=== PATIENT | female | born 1965 | race Caucasian/White ===

== ENCOUNTER 2016-11-06 10:58 | Emergency (ER) | payer MEDICARE ==
[2014-12-21 13:48] VITALS: BMI 29.9
[~2016-11-06 10:58] MED LIST: AMITRIPTYLINE H50 MG PO; ASPIRIN81 MG PO; COREG6.25 MG PO; CYCLOBENZAPRINE10 MG PO; DURAGESIC1 PATCH .3 TRANSDERM; FOLIC ACID1 MG PO; HYDROCODONE-APA1 TAB PO; KLONOPIN1 MG PO; METHOTREXATE2.5 MG PO; MOBIC7.5 MG PO; PLAQUENIL200 MG PO; PREDNISONE5 MG PO; PRILOSEC20 MG PO; PROZAC40 MG PO; RIFADIN300 MG PO; SEROPHENE50 MG PO; SEROQUEL XR50 MG PO; VESICARE10 MG PO; VITAMIN D2000 UNIT PO; ZESTORETIC 10/11 TAB PO; ZOCOR40 MG PO; ZOFRAN4 MG PO
[2016-11-06 11:32] LABS: BASOPHILS 0.2 % (0.0-2.0); EOSINOPHILS 2.7 % (0-7); HEMATOCRIT 40.9 % (36.0-48.0); HEMOGLOBIN 13.1 g/dL (12-16); IMMATURE GRANULOCYTES 0.5 % (0-5); LYMPHOCYTES 16.9 % (15-50); MCH 31.7 pg (26.0-34.0); MEAN PLATELET VOLUME 10.3 fL (7.4-10.4); MONOCYTES 4.1 % (2-11); NEUTROPHILS 75.6 % (40-80); RBC 4.13 10x6/uL (4.00-5.40); RDW 14.2 % (11.5-14.5); WBC 13.1 10x3/uL (4.8-10.8)
[2016-11-06 11:34] LABS: PLATELET COUNT 261 10x3/uL (130-400)
[2016-11-06 11:45] LABS: ANION GAP 14.8 mmol/L (8-16); BILIRUBIN - TOTAL 0.3 mg/dL (0.2-1.3); CALCIUM 9.6 mg/dL (8.5-10.1); CARBON DIOXIDE 27.2 mmol/L (21.0-32.0)
== END 2016-11-06 16:01 | disposition home or self-care (01) ==
LOC: D.ER 10:58
PROVIDERS: Emergency Medicine
DX: R05 Cough (principal); R06.02 Shortness of breath; R50.9 Fever, unspecified; E87.6 Hypokalemia; M06.9 Rheumatoid arthritis, unspecified; K21.9 Gastro-esophageal reflux disease without esophagitis; F41.9 Anxiety disorder, unspecified; F17.200 Nicotine dependence, unspecified, uncomplicated

== ENCOUNTER 2017-01-31 20:15 | Inpatient (IN) | payer MEDICARE ==
[~2017-01-31] VITALS: Ht 172.7 cm; Wt 95.0 kg
[2017-01-31 20:53] LABS: BASOPHILS 0.3 % (0-2); EOSINOPHILS 1.2 % (0-7); HEMATOCRIT 42.8 % (36.0-48.0); HEMOGLOBIN 13.9 g/dL (12-16); IMMATURE GRANULOCYTES 6.4 % (0-5); LYMPHOCYTES 22.6 % (15-50); MCH 30.9 pg (26.0-34.0); MCHC 32.5 g/dL (31.0-37.0); MCV 95.1 fL (80.0-100.0); MEAN PLATELET VOLUME 10.5 fL (7.4-10.4); MONOCYTES 7.3 % (2-11); NEUTROPHILS 62.2 % (40-80); PLATELET COUNT 283 10x3/uL (130-400); RDW 15.2 % (11.5-14.5); WBC 11.8 10x3/uL (4.8-10.8)
[2017-01-31 21:05] LABS: ALBUMIN 2.9 g/dL (3.4-5.0); BILIRUBIN - TOTAL 0.2 mg/dL (0.2-1.3); CALCIUM 9.6 mg/dL (8.5-10.1); CARBON DIOXIDE 20.4 mmol/L (21.0-32.0); CREATININE - SERUM 1.6 mg/dL (0.6-1.3); POTASSIUM - SERUM 3.4 mmol/L (3.5-5.1); PROTEIN - SERUM 7.3 g/dL (6.4-8.2)
[2017-01-31 21:56] LABS: APPEARANCE CLOUDY (CLEAR); BACTERIA MANY /hpf (NONE SEEN); BILIRUBIN NEGATIVE (NEGATIVE); COLOR YELLOW (YELLOW); GLUCOSE NEGATIVE (NEGATIVE); HYALINE CAST OCC /lpf (NONE SEEN); KETONE NEGATIVE (NEGATIVE); LEUKOCYTE ESTERASE 2+ (NEGATIVE); MUCUS <1+ /lpf (NONE SEEN); NITRITE POSITIVE (NEGATIVE); PROTEIN 1+ mg/dL (NEGATIVE); RED CELLS - URINE 0-5 /hpf (0-5); SPECIFIC GRAVITY 1.015 (1.005-1.020)
--- NOTE | 2017-02-01 00:14 | NUR ---
PT ARRIVES TO FLOOR VIA STRETCHER, ACCOMPANIED BY ER NURSE. ADMISSION ASSESSMENT AND HISTORY OBTAINED. MEDICATIONS RECONCILED AT THE BEDSIDE. VSS, AFEBRILE. PLACED ON TO TELEMETRY, HR 90-100'S SINUS RHYTHM. UNIT ROUTINES AND PROTOCOLS DISCUSSED WITH PT, PT VERBALIZES UNDERSTANDING. PT STATES NEEDING HER 2 MG KLONOPIN AND HYDROCODONE 10/325 MG PO NOW, STATES SHE NORMALLY WOULD HAVE TAKEN THEM @ 2200. REASSURED PT I WOULD PAGE HER ADMITTING PHYSICIAN AND REVIEW MEDICATIONS. IVF'S STARTED ORDERED TO HER LEFT FOREARM WITH ROCEPHIN IVPB GIVEN. CALL LIGHT PLACED WITHIN REACH. WILL CONT TO MONITOR.
[2017-02-01 00:37] VITALS: BP 157/96; BMI 30.2; BMI 38.1
[2017-02-01] MEDS ORDERED: XELJANZ 5 MG PO (01:16)
[2017-02-01] MEDS ORDERED: MARINOL5 MG PO (01:17)
[2017-02-01] MEDS ORDERED: ENDOCET 10-3251 TAB PO (01:18)
--- NOTE | 2017-02-01 02:43 | NUR ---
JAYJAY SANDOVAL APN FOR FURTHER ORDERS RE: PT'S PAIN CONTROL RELATED TO HER RHEUMATOID ARTHRITIS. AWAITING RETURN CALL.
[2017-02-01 03:00] LABS: BASOPHILS 0.5 % (0-2); EOSINOPHILS 1.3 % (0-7); HEMATOCRIT 38.4 % (36.0-48.0); HEMOGLOBIN 12.1 g/dL (12-16); IMMATURE GRANULOCYTES 4.7 % (0-5); MCH 30.1 pg (26.0-34.0); MCHC 31.5 g/dL (31.0-37.0); MCV 95.5 fL (80.0-100.0); MEAN PLATELET VOLUME 10.6 fL (7.4-10.4); NEUTROPHILS 66.5 % (40-80); PLATELET COUNT 232 10x3/uL (130-400); RBC 4.02 10x6/uL (4.00-5.40); RDW 15.1 % (11.5-14.5); WBC 9.8 10x3/uL (4.8-10.8)
[2017-02-01 03:19] LABS: ANION GAP 13.6 mmol/L (8-16); CALCIUM 8.7 mg/dL (8.5-10.1); CARBON DIOXIDE 24.4 mmol/L (21.0-32.0); CREATININE - SERUM 1.2 mg/dL (0.6-1.3)
[2017-02-01 04:00] VITALS: BP 178/95
--- NOTE | 2017-02-01 05:58 | NUR ---
NO RETURN PHONE CALL FROM ROXANN SANDOVAL BOATWRIGHT. EXPLAINED TO PT SHE NEEDED TO BE ASSESSED THIS AM BEFORE RESTARTING HOME NARCOTICS. PT VERBALIZED UNDERSTANDING.
--- NOTE | 2017-02-01 08:04 | NUR ---
AM ROUNDS - PT APPEARS TO BE SLEEPING ON BACK WITH EQUAL AND NON LABORED BREATHS. MONITOR SHOWS SR, HR 90. LEFT FA, NS AT 20CC/HR. WILL CONTINUE TO MONITOR.
[2017-02-01 08:07] VITALS: BP 145/87
[2017-02-01 13:39] VITALS: Ht 172.7 cm; Wt 95.0 kg
[2017-02-01 16:00] VITALS: BP 144/66
[2017-02-01 19:00] VITALS: BP 205/106
--- NOTE | 2017-02-01 19:15 | NUR ---
PT RECEIVED IN BED WITH EYES OPEN. PT COMPLAINS OF PAIN WITH PRN PAIN MEDICATION GIVEN PER MAR. NO OTHER NEEDS OR CONCERNS MADE KNOWN AT THIS TIME. CALL LIGHT IN REACH. WILL CONTINUE TO OBSERVE.
--- NOTE | 2017-02-01 21:30 | NUR ---
PT IN BED WITH EYES OPEN. RECIEVED MEDICATIONS PER MAR. CONTINUES WITH COMPLAINTS OF PAIN. NO OTHER NEEDS OR COMPLAINTS MADE KNOWN. CALL LIGHT IN REACH. WILL CONTINUE TO OBSERVE.
[2017-02-02] VITALS: BP 153/78
--- NOTE | 2017-02-02 02:34 | NUR ---
PT IN BED WITH EYES CLOSED AND CHEST RISING. NO SIGN/SYMPTOMS OF DISTRESS NOTED AT THIS TIME. CALL LIGHT IN REACH. WILL CONTINUE TO OBSERVE.
[2017-02-02 04:00] VITALS: BP 150/76
[2017-02-02 06:01] LABS: BASOPHILS 0.2 % (0-2); HEMATOCRIT 35.9 % (36.0-48.0); HEMOGLOBIN 11.4 g/dL (12-16); IMMATURE GRANULOCYTES 3.7 % (0-5); LYMPHOCYTES 22.4 % (15-50); MCH 30.5 pg (26.0-34.0); MCHC 31.8 g/dL (31.0-37.0); MEAN PLATELET VOLUME 10.2 fL (7.4-10.4); MONOCYTES 7.8 % (2-11); NEUTROPHILS 63.9 % (40-80); PLATELET COUNT 215 10x3/uL (130-400); RBC 3.74 10x6/uL (4.00-5.40); RDW 15.2 % (11.5-14.5)
[2017-02-02 06:17] LABS: ANION GAP 10.5 mmol/L (8-16); CALCIUM 8.2 mg/dL (8.5-10.1); CARBON DIOXIDE 24.9 mmol/L (21.0-32.0); CREATININE - SERUM 0.9 mg/dL (0.6-1.3); POTASSIUM - SERUM 4.4 mmol/L (3.5-5.1)
[2017-02-02 08:00] VITALS: BP 172/96
--- NOTE | 2017-02-02 09:01 | NUR ---
ATTEMPTING TO PULL PERCOCET FOR PATIENT AND DRAW CUBIE MALFUNCTIONED. ATTEMPTED TO RETRY THE FAILED POCKET AND PYSIX INSTRUCTED TO REMOVE CUBIE BUT THIS ROLL OFF DRIVER LEFT CUBIE IN PLACE OF C1. VOCATIONAL NURSING INSTRUCTOR ON UNIT AT THIS TIME AND INFORMED HIM THAT THIS ROLL OFF DRIVER MESSED UP THE PYSIX AND HE STATED HE WOULD TAKE THE CUBIE DOWNSTAIRS AND FIX IT. PERCOCET CUBIE WITH SENIOR ELECTRICAL ESTIMATOR AT THIS TIME.
--- NOTE | 2017-02-02 09:34 | NUR ---
MEDICATED FOR PAIN AT THIS TIME. NO DISTRESS.
--- NOTE | 2017-02-02 11:19 | NUR ---
SITTING UP IN BED, DAUGHTER AT BEDSIDE. PAIN AT 5/10. NO DISTRESS. CALL LIGHT WITHIN REACH. IV FLUIDS INFUSING ORDERED.
[2017-02-02 12:00] VITALS: BP 150/87
--- NOTE | 2017-02-02 14:03 | NUR ---
MEDICATED FOR PAIN AT THIS TIME. NO DISTRESS.
[2017-02-02 16:00] VITALS: BP 156/90
[2017-02-02] MEDS ORDERED: MACROBID100 MG PO (16:00)
--- NOTE | 2017-02-02 19:11 | NUR ---
1814- 20 GAUGE IV REMOVED FROM LEFT FOREARM. CATHETER TIP INTACT. NO BLEEDING FROM SITE. 2X2 GAUZE APPLIED AND SECURED WITH TAPE. TOLERATED D/C IV WELL 1849 DISCHARGE INSTRUCTIONS PROVIDED TO PATIENT AND HER DAUGHTER. PATIENT VERBALZIED ALL INSTRUCTIONS PROVIDED. 1854 PATIENT LEFT UNIT VIA WHEELCHAIR SHE IS DISCHARGED TO HOME. PATIENT LEFT UNIT WITH ALL PERSONAL BELONGINGS IN NO DISTRESS.
== END 2017-02-02 18:55 | disposition home or self-care (01) | DRG 690 ==
LOC: D.ER 20:15 → D.M2 23:08
PROVIDERS: Emergency Medicine; ADMIT Emergency Medicine
DX: N39.0 Urinary tract infection, site not specified (principal); R19.7 Diarrhea, unspecified; M06.9 Rheumatoid arthritis, unspecified; I10 Essential (primary) hypertension; F41.9 Anxiety disorder, unspecified; K21.9 Gastro-esophageal reflux disease without esophagitis; R00.0 Tachycardia, unspecified

== ENCOUNTER 2017-02-05 20:48 | Emergency (ER) | payer MEDICARE ==
[2017-02-01 13:39] VITALS: BMI 30.1
[~2017-02-05 20:48] MED LIST changes: +ENDOCET 10-3251 TAB PO; +MACROBID100 MG PO; +MARINOL5 MG PO; +XELJANZ 5 MG PO
== END 2017-02-06 00:16 | disposition home or self-care (01) ==
LOC: D.ER 20:48
DX: S81.812A Laceration without foreign body, left lower leg, initial encounter (principal); W26.9XXA Contact with unspecified sharp object(s), initial encounter; Y93.89 Activity, other specified; Y92.013 Bedroom of single-family (private) house as the place of occurrence of the external cause; K21.9 Gastro-esophageal reflux disease without esophagitis; F41.9 Anxiety disorder, unspecified; M06.9 Rheumatoid arthritis, unspecified

== ENCOUNTER 2017-02-28 12:50 | Inpatient (IN) | payer MEDICARE ==
[~2017-02-28] VITALS: Ht 172.7 cm; Wt 97.3 kg
[2017-02-28 14:31] LABS: BASOPHILS 0.3 % (0-2); EOSINOPHILS 1.3 % (0-7); HEMATOCRIT 39.9 % (36.0-48.0); HEMOGLOBIN 12.7 g/dL (12-16); IMMATURE GRANULOCYTES 0.6 % (0-5); LYMPHOCYTES 13.2 % (15-50); MCH 31.1 pg (26.0-34.0); MCHC 31.8 g/dL (31.0-37.0); MCV 97.6 fL (80.0-100.0); MEAN PLATELET VOLUME 10.8 fL (7.4-10.4); NEUTROPHILS 79.6 % (40-80); RBC 4.09 10x6/uL (4.00-5.40); RDW 15.8 % (11.5-14.5); WBC 14.9 10x3/uL (4.8-10.8)
[2017-02-28 14:32] LABS: PLATELET COUNT 308 10x3/uL (130-400)
[2017-02-28 14:48] LABS: ALBUMIN 2.9 g/dL (3.4-5.0); ANION GAP 16.7 mmol/L (8-16); BILIRUBIN - TOTAL 0.37 mg/dL (0.2-1.3); CALCIUM 10.2 mg/dL (8.5-10.1); CARBON DIOXIDE 26.3 mmol/L (21.0-32.0); CREATININE - SERUM 1.2 mg/dL (0.6-1.3); PROTEIN - SERUM 7.3 g/dL (6.4-8.2)
--- NOTE | 2017-02-28 17:45 | NUR ---
PT AOX4 RESP EVEN AND NONLABORED IV TO RIGHT AC PATENT AND INTACT PT DENIES NEEDS AT THIS TIME SRX2 BED AT LOWEST SETTING CALL LIGHT WITHIN REACH WILL CONTINUE TO MONITOR
[2017-02-28 17:47] VITALS: BP 121/91; BMI 30.4
--- NOTE | 2017-02-28 19:40 | NUR ---
ASSISTED PT FROM [facility], ASSESSMENT COMPLETED, NO ACUTE DISTRESS NOTED, SR'S UP, CL IN REACH, FAMILY IN ROOM, WILL MONITOR
[2017-02-28 20:00] VITALS: BP 168/95
[2017-02-28] MEDS ORDERED: GLUCOPHAGE500 MG PO (21:04)
--- NOTE | 2017-02-28 23:18 | NUR ---
KERLIX PLACED AROUND WOUND IN L [place] PER REQUEST TO KEEP STITCHES FROM SNAGGING ON SHEET, BERNICE WELL, DENIES NEEDS, SR'S UP, CL IN REACH
[2017-03-01] VITALS: BP 155/88
--- NOTE | 2017-03-01 01:28 | NUR ---
RESTING WITH EYES CLOSED, RESP WITH EASE, NO ACUTE DISTRESS NOTED, FALL PRECAUTIONS IN PLACE, CL IN REACH
--- NOTE | 2017-03-01 01:34 | NUR ---
MEDS GIVEN PER MAR, BERNICE WELL, SR'S UP, CL IN REACH, WILL CONTINUE TO MONITOR
[2017-03-01 04:00] VITALS: BP 137/81
--- NOTE | 2017-03-01 07:45 | NUR ---
PT AOX4 RESP EVEN AND NONLABORED PT DENIES NEEDS AT THIS TIME IV TO RIGHT AC PATENT AND INTACT SRX2 BED AT LOWEST SETTING CALL LIGHT WITHIN REACH WILL CONTINUE TO MONITOR
[2017-03-01 08:16] VITALS: BP 126/70
[2017-03-01 10:07] LABS: BASOPHILS 0.2 % (0-2); EOSINOPHILS 2.5 % (0-7); HEMATOCRIT 35.9 % (36.0-48.0); HEMOGLOBIN 11.2 g/dL (12-16); IMMATURE GRANULOCYTES 1.1 % (0-5); LYMPHOCYTES 25.6 % (15-50); MCH 30.6 pg (26.0-34.0); MCHC 31.2 g/dL (31.0-37.0); MCV 98.1 fL (80.0-100.0); MEAN PLATELET VOLUME 10.1 fL (7.4-10.4); MONOCYTES 5.6 % (2-11); RBC 3.66 10x6/uL (4.00-5.40); RDW 15.8 % (11.5-14.5)
[2017-03-01 10:11] LABS: PLATELET COUNT 209 10x3/uL (130-400); WBC 8.1 10x3/uL (4.8-10.8)
[2017-03-01 10:29] LABS: ALBUMIN 2.4 g/dL (3.4-5.0); BILIRUBIN - TOTAL 0.3 mg/dL (0.2-1.3); CALCIUM 8.9 mg/dL (8.5-10.1); CARBON DIOXIDE 27.2 mmol/L (21.0-32.0); PROTEIN - SERUM 6.1 g/dL (6.4-8.2)
[2017-03-01 10:30] LABS: POTASSIUM - SERUM 3.2 mmol/L (3.5-5.1)
[2017-03-01 10:53] VITALS: Ht 172.7 cm; Wt 97.3 kg
[2017-03-01 12:37] VITALS: BP 151/83
--- NOTE | 2017-03-01 13:53 | NUR ---
PT STATES "I CAN'T LIFT MY ARMS", PUT ME ON THE BEDSIDE COMMODE" I TOLD THE PT THAT SHE NEEDED TO USE THE BEDPAN IF SHE IS ALREADY WEAK.
[2017-03-01 16:48] VITALS: BP 140/78
--- NOTE | 2017-03-01 19:40 | NUR ---
ASSESSMENT COMPLETED, NO ACUTE DISTRESS NOTED, FALL PRECAUTIONS IN PLACE, CL IN REACH, WILL MONITOR
[2017-03-01 20:00] VITALS: BP 144/90
--- NOTE | 2017-03-01 21:41 | NUR ---
RESTING WITH EYES CLOSED, NO ACUTE DISTRESS NOTED, FALL PRECAUTIONS IN PLACE, CL IN REACH
--- NOTE | 2017-03-01 22:19 | NUR ---
PRN NORCO GIVEN PER REQUEST FOR C/O PAIN 06/02, BERNICE WELL, FALL PRECAUTIONS IN PLACE, CL IN REACH
--- NOTE | 2017-03-01 23:50 | NUR ---
RESTING WITH EYES CLOSED, NO DISTRESS NOTED, FALL PRECAUTIONS IN PLACE, CL IN REACH
[2017-03-02] VITALS: BP 140/77
[2017-03-02 04:00] VITALS: BP 148/93
[2017-03-02 06:46] LABS: BASOPHILS 0.2 % (0-2); EOSINOPHILS 3.3 % (0-7); HEMATOCRIT 36.6 % (36.0-48.0); HEMOGLOBIN 11.5 g/dL (12-16); LYMPHOCYTES 21.3 % (15-50); MCH 30.7 pg (26.0-34.0); MCHC 31.4 g/dL (31.0-37.0); MCV 97.9 fL (80.0-100.0); MEAN PLATELET VOLUME 11.1 fL (7.4-10.4); MONOCYTES 8.1 % (2-11); NEUTROPHILS 66.1 % (40-80); PLATELET COUNT 197 10x3/uL (130-400); RBC 3.74 10x6/uL (4.00-5.40); RDW 15.8 % (11.5-14.5); WBC 8.3 10x3/uL (4.8-10.8)
[2017-03-02 07:30] LABS: ALBUMIN 2.4 g/dL (3.4-5.0); ANION GAP 14.8 mmol/L (8-16); BILIRUBIN - TOTAL 0.39 mg/dL (0.2-1.3); CALCIUM 8.5 mg/dL (8.5-10.1); CARBON DIOXIDE 25.5 mmol/L (21.0-32.0); POTASSIUM - SERUM 3.3 mmol/L (3.5-5.1); VANCOMYCIN - TROUGH 20.1 ug/mL (10.0-20.0)
--- NOTE | 2017-03-02 07:58 | NUR ---
PT AOX4 RESP EVEN AND NONLABORED PT DENIES NEEDS AT THIS TIME IV TO RIGHT FOREARM PATENT AND INTACT BED AT LOWEST SETTING CALL LIGHT WITHIN REACH SRX2 WILL CONTINUE TO MONITOR
[2017-03-02 08:38] VITALS: BP 144/77
[2017-03-02 12:13] VITALS: BP 150/91
[2017-03-02 18:49] VITALS: BP 142/76
--- NOTE | 2017-03-02 19:40 | NUR ---
ASSESSMENT COMPLETED, NO ACUTE DISTRESS NOTED, DSG TO Grisel SALGADO CDI, SR'S UP, CL IN REACH, DENIES NEEDS, WILL MONITOR
[2017-03-02 20:00] VITALS: BP 128/80
--- NOTE | 2017-03-02 21:03 | NUR ---
MEDS GIVEN PER NOV, WOUND TO L SALGADO TREATED PER ORDERS, ABDOULAYE WTD APPLIED, BERNICE WELL, DENIES NEEDS, CL IN REACH
--- NOTE | 2017-03-02 23:18 | NUR ---
RESTING WITH EYES CLOSED, NO DISTRESS NOTED, FALL PRECAUTIONS IN PLACE, CL IN REACH
[2017-03-03] VITALS: BP 154/89
--- NOTE | 2017-03-03 01:26 | NUR ---
CONTINUES TO REST WITH EYES CLOSED, NO DISTRESS NOTED, SAFETY MEASURES IN PLACE, CL IN REACH
[2017-03-03 04:00] VITALS: BP 152/82
[2017-03-03] MEDS ORDERED: CLEOCIN HCL150 MG PO (05:50)
[2017-03-03 06:36] LABS: BASOPHILS 0.2 % (0-2); EOSINOPHILS 2.9 % (0-7); HEMATOCRIT 35.4 % (36.0-48.0); HEMOGLOBIN 11.1 g/dL (12-16); LYMPHOCYTES 21.8 % (15-50); MCH 30.6 pg (26.0-34.0); MCHC 31.4 g/dL (31.0-37.0); MCV 97.5 fL (80.0-100.0); MEAN PLATELET VOLUME 10.6 fL (7.4-10.4); MONOCYTES 5.5 % (2-11); NEUTROPHILS 68.6 % (40-80); PLATELET COUNT 199 10x3/uL (130-400); RBC 3.63 10x6/uL (4.00-5.40); RDW 15.6 % (11.5-14.5); WBC 8.2 10x3/uL (4.8-10.8)
[2017-03-03 06:54] LABS: ALBUMIN 2.3 g/dL (3.4-5.0); ANION GAP 13.3 mmol/L (8-16); BILIRUBIN - TOTAL 0.3 mg/dL (0.2-1.3); CARBON DIOXIDE 24.8 mmol/L (21.0-32.0); CREATININE - SERUM 0.9 mg/dL (0.6-1.3); POTASSIUM - SERUM 3.1 mmol/L (3.5-5.1); PROTEIN - SERUM 6.4 g/dL (6.4-8.2); VANCOMYCIN - TROUGH 19.8 ug/mL (10.0-20.0)
--- NOTE | 2017-03-03 07:15 | NUR ---
PATIENT RECEIVED IN RIGHT LATERAL POSITION RESTING QUIETLY. RESPIRATIONS EVEN AND UNLABORED. SIDE RAILS UP X2. BED IN LOW POSITION. CALL LIGHT IN REACH.
[2017-03-03 07:50] VITALS: BP 174/92
--- NOTE | 2017-03-03 08:27 | NUR ---
ALERT IN BED. NO SIGNS OF DISTRESS NOTED. REPOSITIONED IN BED. WELL TOLERATED. SCHEDULED MEDICATION AND PRN PERCOCET ADMINISTERED ADMINISTERED PER ORDER. ANTICIPATING D/C HOME. SIDE RAILS UP X2. BED IN LOW POSITION. CALL LIGHT IN REACH.
--- NOTE | 2017-03-03 09:15 | NUR ---
ALERT IN BED. IV TO RIGHT WRIST D/C WITH CATH TIP INTACT. SITE COVERED WITH GAUZE AND BANDAID. WELL TOLERATED.
--- NOTE | 2017-03-03 09:55 | NUR ---
D/C TEACHING AND WOUND CARE TEACHING PROVIDED TO PATIENT AND DAUGHTER. STATES UNDERSTANDING. DENIES QUESTIONS. D/C HOME. TRANSFERRED DOWNSTAIRS VIA WHEELCHAIR WITH STAFF
== END 2017-03-03 10:03 | disposition home or self-care (01) | DRG 863 ==
LOC: D.ER 12:50 → D.SDCHOLD 15:27 → D.MS 15:27 → OBSVTIME 15:27 → D.MS 17:17
PROVIDERS: Emergency Medicine; ADMIT Family Medicine
DX: T81.4XXA Infection following a procedure, initial encounter (principal); L03.116 Cellulitis of left lower limb; N17.9 Acute kidney failure, unspecified; F17.203 Nicotine dependence unspecified, with withdrawal; R53.1 Weakness; R19.7 Diarrhea, unspecified; M06.9 Rheumatoid arthritis, unspecified; R00.0 Tachycardia, unspecified; I10 Essential (primary) hypertension; F32.9 Major depressive disorder, single episode, unspecified; E11.65 Type 2 diabetes mellitus with hyperglycemia

== ENCOUNTER 2017-07-22 14:55 | Emergency (ER) | payer MEDICARE ==
[2017-03-01 10:53] VITALS: BMI 30.4
[~2017-07-22 14:55] MED LIST changes: +CLEOCIN HCL150 MG PO; +GLUCOPHAGE500 MG PO
[2017-07-22 17:01] LABS: BASOPHILS 0.1 % (0-2); EOSINOPHILS 1.4 % (0-7); HEMATOCRIT 38.4 % (36.0-48.0); HEMOGLOBIN 12.4 g/dL (12-16); IMMATURE GRANULOCYTES 1.2 % (0-5); LYMPHOCYTES 13.9 % (15-50); MCH 29.7 pg (26.0-34.0); MCHC 32.3 g/dL (31.0-37.0); MCV 92.1 fL (80.0-100.0); MEAN PLATELET VOLUME 11.4 fL (7.4-10.4); MONOCYTES 4.5 % (2-11); NEUTROPHILS 78.9 % (40-80); RBC 4.17 10x6/uL (4.00-5.40); RDW 16.2 % (11.5-14.5)
[2017-07-22 17:06] LABS: APPEARANCE CLEAR (CLEAR); COLOR YELLOW (YELLOW)
[2017-07-22 17:07] LABS: BILIRUBIN NEGATIVE (NEGATIVE); GLUCOSE NEGATIVE (NEGATIVE); KETONE NEGATIVE (NEGATIVE); NITRITE NEGATIVE (NEGATIVE); PROTEIN TRACE mg/dL (NEGATIVE); SPECIFIC GRAVITY 1.025 (1.005-1.020); UROBILINOGEN NORMAL (NORMAL)
[2017-07-22 17:11] LABS: PLATELET COUNT 279 10x3/uL (130-400)
[2017-07-22 17:23] LABS: INR 0.84 (0.85-1.17); PROTIME 11.4 SECONDS (11.6-15.0)
[2017-07-22 17:31] LABS: ALBUMIN 2.9 g/dL (3.4-5.0); ALKALINE PHOSPHATASE 104 U/L (46-116); ALT (SGPT) 24 U/L (10-68); BILIRUBIN - TOTAL 0.17 mg/dL (0.2-1.3); CALC OSMOLALITY 282 mosm/kg (275-300); CARBON DIOXIDE 21.8 mmol/L (21.0-32.0); CHLORIDE - SERUM 104 mmol/L (98-107); GLUCOSE 91 mg/dL (74-106); POTASSIUM - SERUM 3.4 mmol/L (3.5-5.1); PROTEIN - SERUM 6.8 g/dL (6.4-8.2); SODIUM 140 mmol/L (136-145); UREA NITROGEN 23 mg/dL (7-18); eGFR NON AFRICAN AMERICAN 61 mL/min (90-120)
[2017-07-22 17:38] LABS: PRO BNP 311 pg/mL (0-125)
[2017-07-22 17:49] LABS: TROPONIN-I < 0.017 ng/mL (0.000-0.060)
== END 2017-07-22 19:10 | disposition home or self-care (01) ==
LOC: D.ER 14:55
PROVIDERS: Nurse Practitioner Family
DX: G89.4 Chronic pain syndrome (principal); M06.9 Rheumatoid arthritis, unspecified; M62.838 Other muscle spasm